=== PATIENT | male | born 1965 | race Caucasian/White ===

== ENCOUNTER 2024-02-06 23:00 | Observation (INO) | payer BC, OTHER ==
--- NOTE | 2024-02-06 23:16 | ERPHSYRPT ---
- History of Present Illness Time Seen by Provider: 02/06/24 23:13 Historian: patient Exam Limitations: no limitations Physician History: Patient is a 58-year-old male with a history of a "bad heart valve" hypertension, hypercholesterolemia, TIA, current smoker presents to our ED for evaluation of pain and numbness to his left shoulder going down his left arm. Symptoms started this evening. No active chest pain at this time but however patient states that he has been experiencing intermittent chest pain with activity. No nausea vomiting or diaphoresis. symptoms are mild to moderate in intensity. No specific worsening or improving factors. Patient otherwise feels well. He voices no other complaints or concerns at this time. Portions of this note were created with voice recognition technology. There may be grammatical, spelling, punctuation or sound alike errors Timing/Duration: today Activities at Onset: none Quality: other (Pain and numbness left shoulder and arm) Location: other (No active chest pain at this time) Chest Pain Radiation: arm Severity of Pain-Max: moderate Severity of Pain-Current: mild Modifying Factors: Improves With: nothing Associated Symptoms: denies symptoms Prior Chest Pain/Cardiac Workup: no prior chest pain Nitro Today/Relief: no nitro taken today Aspirin Treatment Today: no aspirin today Allergies/Adverse Reactions: No Known Drug Allergies Allergy (Verified 02/06/24 23:26) Home Medications: Metoprolol Succinate 50 mg [Toprol Xl 50 MG] 50 mg PO DAILY 02/06/24 [History] - Review of Systems Constitutional: No Symptoms, No Fever, No Chills Eyes: No Symptoms Ears, Nose, & Throat: No Symptoms Respiratory: No Symptoms, No Cough, No Dyspnea Cardiac: No Symptoms, No Chest Pain, No Edema, No Syncope Abdominal/Gastrointestinal: No Symptoms, No Abdominal Pain, No Nausea, No Vomiting, No Diarrhea Genitourinary Symptoms: No Symptoms, No Dysuria Musculoskeletal: No Symptoms, No Back Pain, No Neck Pain Skin: No Symptoms, No Rash Neurological: No Symptoms, No Dizziness, No Focal Weakness, No Sensory Changes Psychological: No Symptoms Endocrine: No Symptoms Hematologic/Lymphatic: No Symptoms Immunological/Allergic: No Symptoms All Other Systems: Reviewed and Negative - Nursing Vital Signs Nursing Vital Signs: Initial Vital Signs Temperature 98 F 02/06/24 23:03 Pulse Rate 57 L 02/06/24 23:03 Respiratory Rate 19 02/06/24 23:03 Blood Pressure 172/107 02/06/24 23:03 O2 Sat by Pulse Oximetry 98 02/06/24 23:03 Pain Scale Pain Intensity 6 - Physical Exam General Appearance: no apparent distress, alert Eye Exam: PERRL/EOMI, eyes nml inspection Ears, Nose, Throat Exam: normal ENT inspection, moist mucous membranes Neck Exam: normal inspection, non-tender, supple, full range of motion Respiratory Exam: normal breath sounds, lungs clear, No respiratory distress Cardiovascular Exam: regular rate/rhythm, normal heart sounds Gastrointestinal/Abdomen Exam: soft, No tenderness, No mass Back Exam: normal inspection, No CVA tenderness, No vertebral tenderness Extremity Exam: normal inspection, normal range of motion, other (Bilateral upper extremities are neurovascular tact distally. Compartments are soft cap refill less than 2 seconds.) Neurologic Exam: alert, oriented x 3, cooperative, normal mood/affect, sensation nml, No motor deficits Skin Exam: normal color, warm, dry Lymphatic Exam: No adenopathy SpO2 Interpretation: normal SpO2: 98 O2 Delivery: Room Air - Course Nursing assessment & vital signs reviewed: Yes EKG Interpreted by Me: RATE (80), Sinus Rhythm, LAFB, NORMAL INTERVALS, NORMAL QRS (Ventricular trigeminy) - Radiology Exams Chest X-ray Interpretation: Teleradiologist Report (Exaggerated bronchial vascular markings otherwise no acute findings) - CT Exams Head CT Interpretation: Tele-radiologist Report (No acute intracranial process observed) Ordered Tests: Active Orders 24 hr Category Date Time Status Personal Caregiver STAT Care 02/06/24 23:12 Active IV Insertion STAT Care 02/06/24 23:11 Active Pulse Oximetry (ED) STAT Care 02/06/24 23:11 Active CHEST 1 VIEW (PORTABLE) Stat Exams 02/06/24 23:12 Completed HEAD WITHOUT CONTRAST [CT] Stat Exams 02/07/24 01:02 Completed CBC W DIFF Stat Lab 02/06/24 23:25 Completed CMP Stat Lab 02/06/24 23:25 Completed NT PRO BNPII Stat Lab 02/06/24 23:25 Completed TROPONIN Q4H Lab 02/06/24 23:25 Completed TROPONIN Q4H Lab 02/07/24 02:12 Completed TROPONIN Q4H Lab 02/07/24 07:15 Ordered Transfer Order Routine Transfer 02/07/24 Ordered Medication Summary Generic Name Dose Route Start Last Admin Trade Name Daya PRN Reason Stop Dose Admin Sodium Chloride 1,000 mls @ 75 mls/hr 02/07/24 03:45 02/07/24 03:48 Sodium Chloride 0.9% 1000 Ml IV 03/08/24 03:44 75 mls/hr .[id number] ROMA Administration Discontinued Medications Generic Name Dose Route Start Last Admin Trade Name Daya PRN Reason Stop Dose Admin Aspirin 324 mg 02/07/24 02:31 02/07/24 02:35 Aspirin 81 Mg Tab.Chew PO 02/07/24 02:32 324 mg STAT ONE Administration Aspirin Confirm 02/07/24 02:35 Aspirin 81 Mg Tab.Chew Administered 02/07/24 02:36 Dose 324 mg .ROUTE .STK-MED ONE Lab/Rad Data: Laboratory Result Diagrams 02/06/24 23:25 02/06/24 23:25 Laboratory Results 02/07/24 02/06/24 02/06/24 Range/Units 02:12 23:25 23:25 WBC (4.23-9.07) x10^3/uL RBC (4.63-6.08) x10^6/uL Hgb (13.7-17.5) g/dL Hct (40.1-51.0) % MCV (79.0-92.2) fL MCH (25.7-32.2) pg MCHC (32.3-36.5) g/dL RDW (11.6-14.4) % Plt Count (163-337) x10^3/uL MPV (9.4-12.4) fL Gran % (34.0-67.9) % Immature Gran % (Auto) (0.001-0.429) % Nucleat RBC Rel Count (0.00-0.2) % Eos # (Auto) (0.04-0.54) x10^3/uL Immature Gran # (Auto) (0.001-0.031) x10^3u/L Absolute Lymphs (auto) (1.32-3.57) x10^3/uL Absolute Monos (auto) (0.30-0.82) x10^3/uL Absolute Nucleated RBC (0.00-0.012) x10^3u/L Lymphocytes % (21.8-53.1) % Monocytes % (5.3-12.2) % Eosinophils % (0.8-7.0) % Basophils % (0.2-1.2) % Absolute Granulocytes (1.78-5.38) x10^3/uL Basophils # (0.01-0.08) x10^3/uL Sodium 136 (135-145) mmol/L Potassium 4.4 (3.5-5.1) mmol/L Chloride 101 (98-107) mmol/L Carbon Dioxide 30 (22-30) mmol/L Anion Gap 9.2 (5-15) MEQ/L BUN 27 H (9-20) mg/dL Creatinine 1.11 (0.66-1.25) mg/dL Estimated GFR 77.9 ML/MIN Glucose 99 (74-106) mg/dL Calcium 9.4 (8.4-10.2) mg/dL Total Bilirubin 0.30 (0.2-1.3) mg/dL AST 40 (17-59) U/L ALT 28 (0-50) U/L Alkaline Phosphatase 73 (38-126) U/L Troponin I < 0.012 < 0.012 (0.000-0.033) ng/mL NT-Pro-B Natriuret Pep 150 (<300) pg/mL Serum Total Protein 7.1 (6.3-8.2) g/dL Albumin 4.3 (3.5-5.0) g/dL 12/18/24 Range/Units 23:25 WBC 9.3 H (4.23-9.07) x10^3/uL RBC 4.72 (4.63-6.08) x10^6/uL Hgb 16.1 (13.7-17.5) g/dL Hct 46.8 (40.1-51.0) % MCV 99.2 H (79.0-92.2) fL MCH 34.1 H (25.7-32.2) pg MCHC 34.4 (32.3-36.5) g/dL RDW 12.9 (11.6-14.4) % Plt Count 265 (163-337) x10^3/uL MPV 11.6 (9.4-12.4) fL Gran % 46.9 (34.0-67.9) % Immature Gran % (Auto) 0.4 (0.001-0.429) % Nucleat RBC Rel Count 0.0 (0.00-0.2) % Eos # (Auto) 0.26 (0.04-0.54) x10^3/uL Immature Gran # (Auto) 0.04 H (0.001-0.031) x10^3u/L Absolute Lymphs (auto) 3.77 H (1.32-3.57) x10^3/uL Absolute Monos (auto) 0.82 (0.30-0.82) x10^3/uL Absolute Nucleated RBC 0.00 (0.00-0.012) x10^3u/L Lymphocytes % 40.4 (21.8-53.1) % Monocytes % 8.8 (5.3-12.2) % Eosinophils % 2.8 (0.8-7.0) % Basophils % 0.7 (0.2-1.2) % Absolute Granulocytes 4.38 (1.78-5.38) x10^3/uL Basophils # 0.07 (0.01-0.08) x10^3/uL Sodium (135-145) mmol/L Potassium (3.5-5.1) mmol/L Chloride (98-107) mmol/L Carbon Dioxide (22-30) mmol/L Anion Gap (5-15) MEQ/L BUN (9-20) mg/dL Creatinine (0.66-1.25) mg/dL Estimated GFR ML/MIN Glucose (74-106) mg/dL Calcium (8.4-10.2) mg/dL Total Bilirubin (0.2-1.3) mg/dL AST (17-59) U/L ALT (0-50) U/L Alkaline Phosphatase (38-126) U/L Troponin I (0.000-0.033) ng/mL NT-Pro-B Natriuret Pep (<300) pg/mL Serum Total Protein (6.3-8.2) g/dL Albumin (3.5-5.0) g/dL - Progress Progress: improved Air Movement: good Progress Note: Spoke to radiologist at approximately 3:40 AM. He advised hospitalization for MRI. 02/07/24 03:43 Case discussed with hospitalist accepts admission at 3:49 AM 02/07/24 03:49 58-year-old male presents to emergency department for evaluation of numbness down his left arm. Patient has a significant cardiovascular history. Cardiovascular workup essentially nonremarkable. Negative troponin. CT head negative for acute intracranial pathology. Patient evaluated by neurologist who advises admission for MRI. However if MRI is normal then patient symptomology likely secondary to a peripheral nerve impingement. Aspirin administered. IV fluids infusing. Laboratory workup otherwise unremarkable. Troponin negative x 2. EKG sinus rhythm. Vital stable. Patient is not in pain at this time. Patient otherwise feels well. The involved left upper extremity is neurovascular intact. Compartments are soft cap refill less than 2 seconds. 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 [facility] the admission. Plan of care discussed with patient. He agrees to admission at [facility] for further evaluation and treatment. Portions of this note were created with voice recognition technology. There may be grammatical, spelling, punctuation or sound alike errors Complexity of problem addressed is moderate acute complicated no critical care time. Complexity of data reviewed and analyzed is extensive. Test ordered ches t reviewed results analyzed and correlated clinically with history and physical exam. Management discussed with neurologist and hospitalist. Risk of complication and or risk of morbidity/mortality of patient management is high. Patient requires hospitalization for further evaluation and treatment. Vital stable. Time spent to admit patient is approximately 15 minutes. Plan of care established for shared decision making. No social determinants of health present to impede follow-up. Portions of this note were created with voice recognition technology. There may be grammatical, spelling, punctuation or sound alike errors 02/07/24 04:03 Blood Culture(s) Obtained: No Antibiotics given: No Discussed with Dr.: Abreu (Case discussed with hospitalist Dr. Malachi Weiner at 3:49am) Counseled pt/family regarding: lab results, diagnosis, rad results - Departure Departure Disposition: Observation Clinical Impression: Left arm numbness, Chest pain Condition: Stable Critical Care Time: No Referrals: JAY FISCHER MD [Primary Care Provider] - Follow up/PCP as directed
[2024-02-06 23:28] LABS: Absolute Neutrophil Ct (ANC) 4.38 x10^3/uL (1.78-5.38); BASOPHIL % 0.7 % (0.2-1.2); Basophil (Absolute #) 0.07 x10^3/uL (0.01-0.08); Eosinophil % 2.8 % (0.8-7.0); Eosinophil (Absolute #) 0.26 x10^3/uL (0.04-0.54); Hematocrit 46.8 % (40.1-51.0); Hemoglobin 16.1 g/dL (13.7-17.5); IMMATURE GRAN # 0.04 x10^3u/L (0.001-0.031); IMMATURE GRAN % 0.4 % (0.001-0.429); Lymphocyte (Absolute #) 3.77 x10^3/uL (1.32-3.57); Lymphocytes % 40.4 % (21.8-53.1); Mean Cell Volume 99.2 fL (79.0-92.2); Mean Corpuscular Hemoglobin 34.1 pg (25.7-32.2); Mean Corpuscular Hgb Concent. 34.4 g/dL (32.3-36.5); Mean Platelet Volume 11.6 fL (9.4-12.4); Monocyte (Absolute #) 0.82 x10^3/uL (0.30-0.82); Monocytes % 8.8 % (5.3-12.2); Neutrophil % 46.9 % (34.0-67.9); Platelet Count 265 x10^3/uL (163-337); Red Blood Count 4.72 x10^6/uL (4.63-6.08); Red Cell Distribution Width 12.9 % (11.6-14.4); White Blood Count 9.3 x10^3/uL (4.23-9.07)
[2024-02-06 23:44] LABS: ALBUMIN 4.3 g/dL (3.5-5.0); ANION GAP 9.2 MEQ/L (5-15); BILIRUBIN,TOTAL 0.3 mg/dL (0.2-1.3); Calcium 9.4 mg/dL (8.4-10.2); Creatinine 1 1.11 mg/dL (0.66-1.25); EST GLOMERULAR FILTRATION RATE 77.9 ML/MIN; Potassium 4.4 mmol/L (3.5-5.1); Total Protein 7.1 g/dL (6.3-8.2)
[2024-02-07 00:02] LABS: NT PRO BNPII 150 pg/mL (<300); TROPONIN < 0.012 ng/mL (0.000-0.033)
--- NOTE | 2024-02-07 02:29 | XRAY ---
CLINICAL HISTORY: Numbness and headache COMPARISON: None. TECHNIQUE: Multiple axial images are obtained from the skull base to the vertex without contrast. CT scan was performed according to ALARA (as low as reasonable achievable). FINDINGS: The brain shows normal morphology, attenuation, and volume for age. No evidence of space occupying lesion, hemorrhage, edema, mass effect, midline shift, extra axial collection, or hydrocephalus is noted. Ventricles, sulci, and basal cisterns are symmetric and normal in size and configuration. The durand-white matter differentiation is preserved. Visualized paranasal sinuses and mastoid air cells are well aerated. Orbital contents are within normal limits. Bony structures are intact. IMPRESSION: 1. No evidence of acute intracranial abnormality is demonstrated Electronically Signed by: Emanuel Whitehead MD. (02/07/2024 02:25:44 EST)
[2024-02-07] MEDS: BABY ASPIRIN 81 MG CHEW PO ONE (02:35)
[2024-02-07] MEDS ORDERED: BABY ASPIRIN 81 MG CHEW ONE (02:35)
--- NOTE | 2024-02-07 03:35 | XRAY ---
CLINICAL HISTORY: pain COMPARISON: No prior studies are available for comparison. TECHNIQUE: An X-ray image of the chest is obtained in AP projection. FINDINGS: Pulmonary Parenchyma: Prominent both lian with exaggerated basal bronchovascular markings. Evidence of small calcified density seen in the left lower lung zone. Suspected faint rounded nodule in the right lower lung zone, possible vascular structure for better assessment with CT. No evidence of pleural effusion or pleural thickening. Heart and Mediastinum: Heart size and shape are normal. No mediastinal widening or masses. No hilar or mediastinal lymphadenopathy. Bony Thorax: Bony thorax appears intact without fractures or deformities. Soft Tissues: Soft tissues overlying the chest wall are unremarkable. IMPRESSION: 1. Both lian are prominent with exaggerated basal bronchovascular markings suggesting infection/bronchitis for clinical correlation. 2. Evidence of small calcified density seen in the left lower lung zone, likely calcified granuloma. 3. Suspected faint rounded nodule in the right lower lung zone, possible vascular structure for better assessment with CT. Electronically Signed by: Chuyita Turner MD. (02/07/2024 03:30:55 EST)
[2024-02-07] MEDS: Sodium Chloride 0.9% 1000 ML 1,000 ML IV SCH (03:48)
[2024-02-07] MEDS ORDERED: MILK OF MAGNESIA 30 ML PO PRN (04:34)
[2024-02-07] MEDS ORDERED: Docusate Sodium 100 MG PO PRN (04:34)
[2024-02-07] MEDS ORDERED: Zofran 4 MG/2 ML VIAL IV PRN (04:34)
[2024-02-07] MEDS: Nicoderm CQ 21 MG TOP SCH ×2 (05:30→10:45)
[2024-02-07] MEDS: TYLENOL 325 MG PO PRN (05:40)
--- NOTE | 2024-02-07 08:05 | PCM.HP ---
History of Present Illness - Chief Complaint Chief Complaint: Left upper extremity paresthesias Date: 02/07/24 History of Present Illness: is a 58 year old male with PMHX of HTN, CHF. CAD, TIA with chronic left side weakness, hyperlipidemia, daily smoker, migraines, anxiety, and prostate problems. He presented to our ED on 02/05 for evaluation of pain and numbness to his left shoulder going down his left arm. Symptoms started that evening at 8pm and he states he also felt groggy and confused. No active chest pain at this however patient states that he has been experiencing intermittent chest pain with activity. No nausea vomiting or diaphoresis. symptoms are mild to moderate in intensity. No specific worsening or improving factors. Patient otherwise feels well. He voices no other complaints or concerns at this time. CT head negative. MRI pending. CXR shows bronchitis and faint rounded nodule in the right lower lung zone, possible vascular structure for better assessment with CT. CT chest with contrast ordered for further eval of findings. Trop x3 negative. He has continued left sided weakness and a frontal H/A. Tylenol was helpful for his H/A. He is a prisoner and a maintenance trainer is in the room with him. He currently denies CP, SOB, abd. pain, N/V/D. - Review of Systems Constitutional: No Fever, No Chills Eyes: No Symptoms Ears, Nose, & Throat: No Symptoms Respiratory: No Cough, No Short Of Breath Cardiac: No Chest Pain, No Edema, No Syncope Abdominal/Gastrointestinal: No Abdominal Pain, No Nausea, No Vomiting, No Diarrhea Genitourinary Symptoms: No Dysuria Musculoskeletal: No Back Pain, No Neck Pain Skin: No Rash Neurological: Focal Weakness (left sided weakness), Headache, No Dizziness, No Sensory Changes Psychological: No Symptoms Endocrine: No Symptoms Hematologic/Lymphatic: No Symptoms Immunological/Allergic: No Symptoms Medications & Allergies Home Medications: Home Medication List Metoprolol Succinate 50 mg [Toprol Xl 50 MG] 50 mg PO DAILY 02/06/24 [History Confirmed 02/06/24] Allergies/Adverse Reactions: Allergies Allergy/AdvReac Type Severity Reaction Status Date / Time No Known Drug Allergies Allergy Verified 02/06/24 23:26 - Past Medical History Past Medical History: Yes Neurological History: Migraines, Stroke ENT History: No Pertinent History Cardiac History: Congestive Heart Failure, Coronary Artery Disease, High Cholesterol, Hypertension Respiratory History: COPD Endocrine Medical History: No Pertinent History Musculoskelatal History: Fractures GI Medical History: No Pertinent History History: Other Pyscho-Social History: Anxiety Male Reproductive Disorders: Prostate Problems Comment: acute kidney injuries, enlarged prostate 5 years ago, fell off roof and broke jaw, kneecaps, feet, and ribs and ruptured spleen - Past Surgical History Past Surgical History: Yes Neuro Surgical History: No Pertinent History Cardiac History: No Pertinent History Respiratory Surgery: No Pertinent History GI Surgical History: No Pertinent History Genitourinary Surgical Hx: No Pertinent History Musculskeletal Surgical Hx: Orthopedic Surgery Male Surgical History: No Pertinent History Other Surgical History: jaw and knee repair, surgery on spleen - Social History Smoking Status: Current every day smoker How long have you smoked: 44 years Exposure to second hand smoke: No Alcohol: Daily Drug Use: methamphetamines - Social Determinants of Health Will the patient participate in the screening: Yes Do you worry about a steady place to live?: No Do you have any problems with any of the following?: No known problems In the past 12 months,have you had to go without utilities?: No Have you or anyone in your house had to go without enough: No Transportation Issues: No Has anyone in your support network made you feel unsafe?: No Does the patient want assistance with any of the above?: No - Physical Exam Vital Signs: Vital Signs - 24 hr Temp Pulse Resp BP BP Pulse Ox 02/07/24 06:59 98 F 61 17 135/64 98 02/07/24 04:32 98.1 F 60 17 133/83 96 02/07/24 04:11 98 02/07/24 04:08 73 14 127/82 98 02/07/24 04:06 63 23 127/82 97 02/07/24 03:30 74 19 126/86 98 02/07/24 03:01 59 L 14 134/88 98 02/07/24 02:30 62 15 115/77 99 02/07/24 02:00 63 17 118/81 98 02/07/24 01:30 56 L 15 112/90 97 02/07/24 01:01 60 15 123/82 98 02/07/24 00:30 83 19 127/72 95 02/07/24 00:01 65 15 127/76 97 02/06/24 23:34 96 02/06/24 23:31 75 16 150/90 96 02/06/24 23:03 98 F 57 L 19 172/107 98 General Appearance: no apparent distress, alert Neurologic Exam: alert, oriented x 3, cooperative, 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 nml as tested, normal mood/affect, nml cerebellar function, nml station & gait, sensation nml, motor weakness (Chronic left sided), No motor deficits Eye Exam: PERRL/EOMI, eyes nml inspection Ears, Nose, Throat Exam: normal ENT inspection, TMs normal, pharynx normal, moist mucous membranes Neck Exam: normal inspection, non-tender, supple, full range of motion Respiratory Exam: normal breath sounds, lungs clear, No respiratory distress Cardiovascular Exam: regular rate/rhythm, normal heart sounds, normal peripheral pulses Gastrointestinal/Abdomen Exam: soft, normal bowel sounds, No tenderness, No mass Back Exam: normal inspection, normal range of motion, No CVA tenderness, No vertebral tenderness Extremity Exam: normal inspection, normal range of motion, pelvis stable Skin Exam: normal color, warm, dry, No rash Lymphatic Exam: No adenopathy Results - Labs Lab/Micro Results: Lab Results-Last 24 Hours 02/06/24 02/06/24 02/06/24 Range/Units 23:25 23:25 23:25 WBC 9.3 H (4.23-9.07) x10^3/uL RBC 4.72 (4.63-6.08) x10^6/uL Hgb 16.1 (13.7-17.5) g/dL Hct 46.8 (40.1-51.0) % MCV 99.2 H (79.0-92.2) fL MCH 34.1 H (25.7-32.2) pg MCHC 34.4 (32.3-36.5) g/dL RDW 12.9 (11.6-14.4) % Plt Count 265 (163-337) x10^3/uL MPV 11.6 (9.4-12.4) fL Gran % 46.9 (34.0-67.9) % Immature Gran % (Auto) 0.4 (0.001-0.429) % Nucleat RBC Rel Count 0.0 (0.00-0.2) % Eos # (Auto) 0.26 (0.04-0.54) x10^3/uL Immature Gran # (Auto) 0.04 H (0.001-0.031) x10^3u/L Absolute Lymphs (auto) 3.77 H (1.32-3.57) x10^3/uL Absolute Monos (auto) 0.82 (0.30-0.82) x10^3/uL Absolute Nucleated RBC 0.00 (0.00-0.012) x10^3u/L Lymphocytes % 40.4 (21.8-53.1) % Monocytes % 8.8 (5.3-12.2) % Eosinophils % 2.8 (0.8-7.0) % Basophils % 0.7 (0.2-1.2) % Absolute Granulocytes 4.38 (1.78-5.38) x10^3/uL Basophils # 0.07 (0.01-0.08) x10^3/uL Sodium 136 (135-145) mmol/L Potassium 4.4 (3.5-5.1) mmol/L Chloride 101 (98-107) mmol/L Carbon Dioxide 30 (22-30) mmol/L Anion Gap 9.2 (5-15) MEQ/L BUN 27 H (9-20) mg/dL Creatinine 1.11 (0.66-1.25) mg/dL Estimated GFR 77.9 ML/MIN Glucose 99 (74-106) mg/dL Calcium 9.4 (8.4-10.2) mg/dL Total Bilirubin 0.30 (0.2-1.3) mg/dL AST 40 (17-59) U/L ALT 28 (0-50) U/L Alkaline Phosphatase 73 (38-126) U/L Troponin I < 0.012 (0.000-0.033) ng/mL NT-Pro-B Natriuret Pep 150 (<300) pg/mL Serum Total Protein 7.1 (6.3-8.2) g/dL Albumin 4.3 (3.5-5.0) g/dL 02/07/24 Range/Units 02:12 WBC (4.23-9.07) x10^3/uL RBC (4.63-6.08) x10^6/uL Hgb (13.7-17.5) g/dL Hct (40.1-51.0) % MCV (79.0-92.2) fL MCH (25.7-32.2) pg MCHC (32.3-36.5) g/dL RDW (11.6-14.4) % Plt Count (163-337) x10^3/uL MPV (9.4-12.4) fL Gran % (34.0-67.9) % Immature Gran % (Auto) (0.001-0.429) % Nucleat RBC Rel Count (0.00-0.2) % Eos # (Auto) (0.04-0.54) x10^3/uL Immature Gran # (Auto) (0.001-0.031) x10^3u/L Absolute Lymphs (auto) (1.32-3.57) x10^3/uL Absolute Monos (auto) (0.30-0.82) x10^3/uL Absolute Nucleated RBC (0.00-0.012) x10^3u/L Lymphocytes % (21.8-53.1) % Monocytes % (5.3-12.2) % Eosinophils % (0.8-7.0) % Basophils % (0.2-1.2) % Absolute Granulocytes (1.78-5.38) x10^3/uL Basophils # (0.01-0.08) x10^3/uL Sodium (135-145) mmol/L Potassium (3.5-5.1) mmol/L Chloride (98-107) mmol/L Carbon Dioxide (22-30) mmol/L Anion Gap (5-15) MEQ/L BUN (9-20) mg/dL Creatinine (0.66-1.25) mg/dL Estimated GFR ML/MIN Glucose (74-106) mg/dL Calcium (8.4-10.2) mg/dL Total Bilirubin (0.2-1.3) mg/dL AST (17-59) U/L ALT (0-50) U/L Alkaline Phosphatase (38-126) U/L Troponin I < 0.012 (0.000-0.033) ng/mL NT-Pro-B Natriuret Pep (<300) pg/mL Serum Total Protein (6.3-8.2) g/dL Albumin (3.5-5.0) g/dL - Radiology Impressions Radiology Exams & Impressions: Radiology Procedures Category Date Time Status CHEST 1 VIEW (PORTABLE) Stat Exams 02/06/24 23:12 Completed HEAD WITHOUT CONTRAST [CT] Stat Exams 02/07/24 01:02 Completed MRI BRAIN W & W/O CONTRAST [MRI] Routine Exams 02/07/24 04:41 Ordered Assessment/Plan (1) Left arm numbness Current Visit: Yes Status: Acute Assessment & Plan: - CT head negative - MRI pending - possible nerve impingement- could f/u with ortho OP - neurology consulted in ER per note - ASA 324 mg gave in ER - Continue 81mg ASA daily Code(s): R20.0 - ANESTHESIA OF SKIN (2) HTN (hypertension) Current Visit: Yes Status: Chronic Assessment & Plan: - BP controlled- continue home med Code(s): I10 - ESSENTIAL (PRIMARY) HYPERTENSION (3) Hyperlipidemia Current Visit: Yes Status: Acute Assessment & Plan: - lipid panel- pending - not on a current statin but has a hx of this dx Code(s): E78.5 - HYPERLIPIDEMIA, UNSPECIFIED (4) Chest pain Current Visit: Yes Status: Acute Assessment & Plan: - Trop x3 negative - tele Code(s): R07.9 - CHEST PAIN, UNSPECIFIED (5) Smoker Current Visit: Yes Status: Acute Assessment & Plan: - Lipid panel - advised smoking cessation - Nicotine patch Code(s): F17.200 - NICOTINE DEPENDENCE, UNSPECIFIED, UNCOMPLICATED (6) Lung nodule Current Visit: Yes Status: Acute Assessment & Plan: - seen on CXR - CT chest with contrast: Impression: 1. Chronic findings including biapical subpleural cystic changes, arteriosclerotic disease, aortic valve calcifications, degenerative spondylosis, and old granulomatous disease. 2. Incidental colonic fecal stasis. 3. Remaining CT chest with contrast exam is negative. Code(s): R91.1 - SOLITARY PULMONARY NODULE (7) Hx-TIA (transient ischemic attack) Current Visit: Yes Status: Chronic Assessment & Plan: - with residual chronic left sided weakness Code(s): Z86.73 - PRSNL HX OF TIA (TIA), AND CEREB INFRC W/O RESID DEFICITS (8) Constipation Current Visit: Yes Status: Acute Assessment & Plan: - Miralax Code(s): K59.00 - CONSTIPATION, UNSPECIFIED (9) CAD (coronary artery disease) Current Visit: Yes Status: Chronic Assessment & Plan: - Pt reports known CAD and needing open heart surgery- procedure to be scheduled soon. Code(s): I25.10 - ATHSCL HEART DISEASE OF [place] CORONARY ARTERY W/O ANG PCTRS (10) Headache Current Visit: Yes Status: Acute Assessment & Plan: - Tylenol PRN VTE: SCD Next of KIN: none D/C plan: 1-2 days Code status: Full Code(s): R51.9 - HEADACHE, UNSPECIFIED
[2024-02-07 08:16] LABS: Hematocrit 45.2 % (40.1-51.0); Hemoglobin 15.4 g/dL (13.7-17.5); Mean Cell Volume 99.1 fL (79.0-92.2); Mean Corpuscular Hemoglobin 33.8 pg (25.7-32.2); Mean Corpuscular Hgb Concent. 34.1 g/dL (32.3-36.5); Mean Platelet Volume 11.5 fL (9.4-12.4); Platelet Count 257 x10^3/uL (163-337); Red Blood Count 4.56 x10^6/uL (4.63-6.08); White Blood Count 7.1 x10^3/uL (4.23-9.07)
[2024-02-07 08:27] LABS: ALBUMIN 3.9 g/dL (3.5-5.0); ANION GAP 9.1 MEQ/L (5-15); BILIRUBIN,TOTAL 0.7 mg/dL (0.2-1.3); Creatinine 1 0.91 mg/dL (0.66-1.25); EST GLOMERULAR FILTRATION RATE 98.9 ML/MIN; Potassium 4.2 mmol/L (3.5-5.1); Total Protein 6.3 g/dL (6.3-8.2)
[2024-02-07] MEDS: Toprol Xl 50 MG PO SCH (09:57)
[2024-02-07] MEDS: ENOXAPARIN SODIUM SQ SCH (09:57)
[2024-02-07] MEDS: ECOTRIN 81 MG PO SCH (09:57)
--- NOTE | 2024-02-07 10:00 | XRAY ---
Indication: Abnormal chest radiograph. Multiple contiguous axial images obtained through the chest using 80 cc Isovue 370 contrast. Comparison: None Lungs demonstrates mild biapical subpleural cystic changes, tiny left mid lung calcified granulomas largest 8mm, and minimal bibasilar dependent atelectasis. No infiltrate, consolidation, or effusion. Heart not enlarged with aortic valve calcifications. Aorta is normal in course and caliber with minimal arch calcifications. Small left hilar calcified nodes. No pathologic mediastinal/hilar lymphadenopathy. Bony thorax intact with mild degenerative changes throughout spine. 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 Visualized colon demonstrates incidental moderate diffuse fecal debris. Impression: 1. Chronic findings including biapical subpleural cystic changes, arteriosclerotic disease, aortic valve calcifications, degenerative spondylosis, and old granulomatous disease. 2. Incidental colonic fecal stasis. 3. Remaining CT chest with contrast exam is negative.
[2024-02-07] MEDS: Miralax Powder 17GM PACKET PO ONE (13:55)
--- NOTE | 2024-02-07 14:09 | XRAY ---
Indication: Right arm numbness. Normal CT head exam. Sagittal, coronal, and axial MRI performed using pre and post T1, T2, FLAIR, diffusion, and ADC sequences. 20 cc Dotarem contrast used. Comparison: None Ventriculosulcal pattern appears symmetric. No acute intracranial hemorrhage, abnormal extra-axial fluid collection, or mass effect. Diffusion images negative for restricted signal. Following gadolinium, there is no abnormal enhancing intra or extra-axial mass. Fourth ventricle is midline without hydrocephalus. 7/8 cranial nerve complex bilaterally symmetric. Normal flow void signal within the major intracerebral circulation. Normal appearing craniocervical junction and sella turcica. Paranasal sinuses are clear. Impression: Negative MRI brain with contrast exam.
[2024-02-08 04:57] VITALS: RESP 19
[2024-02-08 05:05] LABS: Hematocrit 45.2 % (40.1-51.0); Hemoglobin 15.4 g/dL (13.7-17.5); Mean Cell Volume 99.3 fL (79.0-92.2); Mean Corpuscular Hemoglobin 33.8 pg (25.7-32.2); Mean Corpuscular Hgb Concent. 34.1 g/dL (32.3-36.5); Platelet Count 269 x10^3/uL (163-337); Red Blood Count 4.55 x10^6/uL (4.63-6.08); Red Cell Distribution Width 13.2 % (11.6-14.4); White Blood Count 6.2 x10^3/uL (4.23-9.07)
[2024-02-08 05:23] LABS: ALBUMIN 3.9 g/dL (3.5-5.0); ANION GAP 7.9 MEQ/L (5-15); BILIRUBIN,TOTAL 0.6 mg/dL (0.2-1.3); Calcium 9.3 mg/dL (8.4-10.2); Creatinine 1 0.89 mg/dL (0.66-1.25); EST GLOMERULAR FILTRATION RATE 100.6 ML/MIN; Potassium 4.3 mmol/L (3.5-5.1); Total Protein 6.5 g/dL (6.3-8.2)
[2024-02-08 08:13] VITALS: O2SAT 98
[2024-02-08] MEDS: TYLENOL 325 MG PO PRN (09:25)
--- NOTE | 2024-02-08 10:21 | PCM.DS ---
Discharge Summary Date of Admission: 02/07/24 04:28 Date of Discharge: 02/08/24 Admitting Physician: KADEEM ESTRELLA MD Primary Care Provider: JAY FISCHER MD Allergies Allergies No Known Drug Allergies Allergy (Verified 02/06/24 23:26) Hospital Summary - Hospital Course Hospital Course: 02/07/24 is a 58 year old male with PMHX of HTN, CHF. CAD, TIA with chronic left side weakness, hyperlipidemia, daily smoker, migraines, anxiety, and prostate problems. He presented to our ED on 02/05 for evaluation of pain and numbness to his left shoulder going down his left arm. Symptoms started that evening at 8pm and he states he also felt groggy and confused. No active chest pain at this however patient states that he has been experiencing intermittent chest pain with activity. No nausea vomiting or diaphoresis. symptoms are mild to moderate in intensity. No specific worsening or improving factors. Patient otherwise feels well. He voices no other complaints or concerns at this time. CT head negative. MRI pending. CXR shows bronchitis and faint rounded nodule in the right lower lung zone, possible vascular structure for better assessment with CT. CT chest with contrast ordered for further eval of findings. Trop x3 negative. He has continued left sided weakness and a frontal H/A. Tylenol was helpful for his H/A. He is a prisoner and a livestock showman is in the room with him. He currently denies CP, SOB, abd. pain, N/V/D. 02/08/24 Pt resting in bed. HR well controlled and w/o pauses after metoprolol stopped. Will Continue metoprolol at low dose at D/C. MRI and CT brain negative. Pt to f/u with cardiology OP as he states he is to have open heart surgery soon. He continues to have a H/A today and Tylenol is helpful. He denies any further concerns at this time. Plan is for pt to go back to [facility] today as he is in custody with guard in room. - Vitals & Intake/Output Vital Signs: Vital Signs Temperature 97.8 F 02/08/24 08:00 Pulse Rate 55 L 02/08/24 08:00 Respiratory Rate 19 02/08/24 08:00 Blood Pressure 135/70 02/08/24 08:00 O2 Sat by Pulse Oximetry 98 12/20/24 08:00 Intake & Output: Intake & Output 02/05/24 02/06/24 02/07/24 02/08/24 11:59 11:59 11:59 11:59 Intake Total 275 1520 Output Total 300 Balance 275 1220 Weight 90.6 kg - Lab Result Diagrams: 02/08/24 04:35 02/08/24 04:35 Lab Results-Last 24 Hrs: Lab Results-Last 24 Hours 02/08/24 02/08/24 Range/Units 04:35 04:35 WBC 6.2 (4.23-9.07) x10^3/uL RBC 4.55 L (4.63-6.08) x10^6/uL Hgb 15.4 (13.7-17.5) g/dL Hct 45.2 (40.1-51.0) % MCV 99.3 H (79.0-92.2) fL MCH 33.8 H (25.7-32.2) pg MCHC 34.1 (32.3-36.5) g/dL RDW 13.2 (11.6-14.4) % Plt Count 269 (163-337) x10^3/uL MPV 12.0 (9.4-12.4) fL Sodium 135 (135-145) mmol/L Potassium 4.3 (3.5-5.1) mmol/L Chloride 105 (98-107) mmol/L Carbon Dioxide 27 (22-30) mmol/L Anion Gap 7.9 (5-15) MEQ/L BUN 22 H (9-20) mg/dL Creatinine 0.89 (0.66-1.25) mg/dL Estimated GFR 100.6 ML/MIN Glucose 94 (74-106) mg/dL Calcium 9.3 (8.4-10.2) mg/dL Total Bilirubin 0.60 (0.2-1.3) mg/dL AST 33 (17-59) U/L ALT 25 (0-50) U/L Alkaline Phosphatase 64 (38-126) U/L Serum Total Protein 6.5 (6.3-8.2) g/dL Albumin 3.9 (3.5-5.0) g/dL - Radiology Exams Ordered Rad Exams-Entire Visit: Radiology Procedures Category Date Time Status CHEST 1 VIEW (PORTABLE) Stat Exams 02/06/24 23:12 Completed CHEST WITH CONTRAST [CT] Routine Exams 02/07/24 07:59 Completed HEAD WITHOUT CONTRAST [CT] Stat Exams 02/07/24 01:02 Completed MRI BRAIN W & W/O CONTRAST [MRI] Routine Exams 02/07/24 04:41 Completed - Procedures and Test Procedures and Tests throughout Hospitalization: Therapy Orders & Screens 02/07/24 04:34 OT Eval and Treat (MD Order) ONCE Comment: Physician Instructions: Reason For Exam: Evaluate: Yes Treat: Yes Reason for Evaluation: right arm numbness Diagnosis: right arm numbness 02/07/24 05:27 Smoking Cessation Education ONCE Comment: Diagnosis: Left upper extremity paresthesias Smoking Status: Current every day smoker How long have you smoked: 44 years Approximately how many cigarettes per day: 2 packs/day Do you dip or chew tobacco: Yes Discharge Exam General Appearance: no apparent distress, alert Neurologic Exam: alert, oriented x 3, cooperative, normal mood/affect, nml cerebellar function, sensation nml, No motor deficits Eye Exam: PERRL, EOMI, eyes nml inspection Ears, Nose, Throat Exam: normal ENT inspection, pharynx normal, moist mucous membranes Neck Exam: normal inspection, non-tender, supple, full range of motion Respiratory Exam: normal breath sounds, lungs clear, No respiratory distress Cardiovascular Exam: regular rate/rhythm, normal heart sounds Gastrointestinal/Abdomen Exam: soft, No tenderness, No mass Male Genitalia Exam: deferred Rectal Exam: deferred Back Exam: normal inspection, normal range of motion, No CVA tenderness, No vertebral tenderness Extremity Exam: normal inspection, normal range of motion Skin Exam: normal color, warm, dry Final Diagnosis/Problem List - Final Discharge Diagnosis/Problem (1) Left arm numbness Current Visit: Yes Status: Acute Code(s): R20.0 - ANESTHESIA OF SKIN (2) HTN (hypertension) Current Visit: Yes Status: Chronic Code(s): I10 - ESSENTIAL (PRIMARY) HYPERTENSION (3) Hyperlipidemia Current Visit: Yes Status: Acute Code(s): E78.5 - HYPERLIPIDEMIA, UNS PECIFIED (4) Chest pain Current Visit: Yes Status: Acute Code(s): R07.9 - CHEST PAIN, UNSPECIFIED (5) Smoker Current Visit: Yes Status: Acute Code(s): F17.200 - NICOTINE DEPENDENCE, UNSPECIFIED, UNCOMPLICATED (6) Lung nodule Current Visit: Yes Status: Acute Code(s): R91.1 - SOLITARY PULMONARY NODULE (7) Hx-TIA (transient ischemic attack) Current Visit: Yes Status: Chronic Code(s): Z86.73 - PRSNL HX OF TIA (TIA), AND CEREB INFRC W/O RESID DEFICITS (8) Constipation Current Visit: Yes Status: Acute Code(s): K59.00 - CONSTIPATION, UNSPECIFIED (9) CAD (coronary artery disease) Current Visit: Yes Status: Chronic Code(s): I25.10 - ATHSCL HEART DISEASE OF [place] CORONARY ARTERY W/O ANG PCTRS (10) Headache Current Visit: Yes Status: Acute Assessment & Plan: (1) Left arm numbness Current Visit: Yes Status: Acute Assessment & Plan: - CT head negative - MRI pending - possible nerve impingement- could f/u with ortho OP - neurology consulted in ER per note - ASA 324 mg gave in ER - Continue 81mg ASA daily 02/07 - pt refuses ortho consult OP - Pt states he has chronic left arm numbness and is at baseline - MRI brain negative for acute concern Code(s): R20.0 - ANESTHESIA OF SKIN (2) HTN (hypertension) Current Visit: Yes Status: Chronic Assessment & Plan: - BP controlled- continue home med 02/07 - Metoprolol stopped 02/06 as having pauses and low HR - Pt to f/u with cardiology OP - Continue metoprolol OP at low dose- rx sent Code(s): I10 - ESSENTIAL (PRIMARY) HYPERTENSION (3) Hyperlipidemia Current Visit: Yes Status: Acute Assessment & Plan: - lipid panel- overall non-concerning - not on a current statin but has a hx of this dx Code(s): E78.5 - HYPERLIPIDEMIA, UNSPECIFIED (4) Chest pain Current Visit: Yes Status: Acute Assessment & Plan: - Trop x3 negative - tele Code(s): R07.9 - CHEST PAIN, UNSPECIFIED (5) Smoker Current Visit: Yes Status: Acute Assessment & Plan: - Lipid panel - advised smoking cessation - Nicotine patch- refused Code(s): F17.200 - NICOTINE DEPENDENCE, UNSPECIFIED, UNCOMPLICATED (6) Lung nodule Current Visit: Yes Status: Acute Assessment & Plan: - seen on CXR - CT chest with contrast: Impression: 1. Chronic findings including biapical subpleural cystic changes, arteriosclerotic disease, aortic valve calcifications, degenerative spondylosis, and old granulomatous disease. 2. Incidental colonic fecal stasis. 3. Remaining CT chest with contrast exam is negative. Code(s): R91.1 - SOLITARY PULMONARY NODULE (7) Hx-TIA (transient ischemic attack) Current Visit: Yes Status: Chronic Assessment & Plan: - with residual chronic left sided weakness Code(s): Z86.73 - PRSNL HX OF TIA (TIA), AND CEREB INFRC W/O RESID DEFICITS (8) Constipation Current Visit: Yes Status: Acute Assessment & Plan: - Miralax - + BM x1 Code(s): K59.00 - CONSTIPATION, UNSPECIFIED (9) CAD (coronary artery disease) Current Visit: Yes Status: Chronic Assessment & Plan: - Pt reports known CAD and needing open heart surgery- procedure to be scheduled soon. - F/U as scheduled OP with cardiology Code(s): I25.10 - ATHSCL HEART DISEASE OF [place] CORONARY ARTERY W/O ANG PCTRS (10) Headache Current Visit: Yes Status: Acute Assessment & Plan: - Tylenol PRN Code(s): R51.9 - HEADACHE, UNSPECIFIED - Discharge Discharge Date: 02/08/24 Disposition: Home, Self-Care Condition: Stable Prescriptions: New Acetaminophen 500 mg [Tylenol Extra Strength 500 mg] 500 mg PO Q6H PRN PRN 30 Days #1 tablet PRN Reason: Headache Discontinued Metoprolol Succinate 50 mg [Toprol Xl 50 MG] 50 mg PO DAILY Follow up with: MIRIAM MOELLER MD [NON-STAFF PHY W/O PRIVILEGES] -
[2024-02-08 11:56] VITALS: BP 131/61; PULSE 56; TEMP 97.9
== END 2024-02-08 12:30 | disposition home or self-care (01) ==
LOC: ED 23:00 → MED SURG 02-07 04:28
PROVIDERS: ADMIT Internal Medicine; ATTEND Internal Medicine
DX: R20.0 Anesthesia of skin (principal); I10 Essential (primary) hypertension; E78.5 Hyperlipidemia, unspecified; R07.9 Chest pain, unspecified; F17.200 Nicotine dependence, unspecified, uncomplicated; R91.1 Solitary pulmonary nodule; Z86.73 Personal history of transient ischemic attack (TIA), and cerebral infarction without residual deficits; K59.00 Constipation, unspecified; I25.10 Atherosclerotic heart disease of native coronary artery without angina pectoris; R51.9 Headache, unspecified; Z79.899 Other long term (current) drug therapy
CPT/HCPCS: 36415; 70450; 70553; 71045; 71260; 80053; 80061; 83721; 83880; 84484; 85025; 85027; 93005; 93041; 93268; 94760; 97165; 99285; G0378; Q3014; J1650; A9270-GY